=== PATIENT | female | born 1970 | race Caucasian/White ===

== ENCOUNTER → 2020-09-21 10:40 | Outpatient (BNVA) | payer OTHER, SELFPAY | PROVIDERS: PCP Internal Medicine; Referring Provider Internal Medicine; Visit Provider Internal Medicine Gastroenterology | DX: K51.30 Ulcerative (chronic) rectosigmoiditis without complications (principal); K21.9 Gastro-esophageal reflux disease without esophagitis | CPT/HCPCS: Q3014 ==

== ENCOUNTER 2020-12-22 06:33 | Day surgery (SDC) | payer OTHER, SELFPAY ==
[2020-12-16 13:25] VITALS: BMI 24.8
--- NOTE | 2020-12-21 07:47 | HO.ANESPROP2 ---
Documented by User: Bety Wiggins 12/21/20 07:47 HPI - Anesthesia Eval Consult details Narrative: 50yo F for Colonoscopy [facility] Active Problems Active Problems: All Active Problems (Updated 09/21/20 @ 10:56 by Joanie Sharma MD) Ulcerative proctosigmoiditis (Acute) GERD (gastroesophageal reflux disease) (Acute) Past Medical History Medical History GERD (gastroesophageal reflux disease) Ulcerative proctosigmoiditis Family History Family History Father Diabetes Brother Diabetes Surgical History Surgical History History of cone biopsy of cervix (04/20/20) History of esophagogastroduodenoscopy (EGD) Hx of colonoscopy Hx of inguinal hernia surgery (07/27/20) Social History Social History Alcohol intake: current Alcohol intake frequency: holidays/special occasions only Smoking Status: Never smoker Advance Directives Information Provided: No Meds Allergies Allergy/AdvReac Type Severity Reaction Status Date / Time bee pollen [Bee Stings] Allergy Severe ANAPHYLAXIS Verified 09/21/20 10:40 Penicillins [PENICILLINS] Allergy Severe ANAPHYLAXIS Verified 09/21/20 10:40 Home Medications Medication Instructions Recorded Confirmed Last Taken Type famotidine 20 mg tablet 20 mg PO BEDTIME 09/21/20 12/16/20 Unknown History Exam Exam Date and Time: December 21, 2020 0747 Height,Weight and Vital Signs: Height 5 ft 2 in Weight 61.689 kg Assessment and Plan Assessment Anesthesia Assessment: Chart Reviewed Documented by User: Rajesh Guardado 12/22/20 07:15 PMFSH Past Medical History Medical History GERD (gastroesophageal reflux disease) Ulcerative proctosigmoiditis Family History Family History Father Diabetes Brother Diabetes Surgical History Surgical History History of cone biopsy of cervix (04/20/20) History of esophagogastroduodenoscopy (EGD) Hx of colonoscopy Hx of inguinal hernia surgery (07/27/20) Social History Social History Alcohol intake: current Alcohol intake frequency: holidays/special occasions only Smoking Status: Never smoker Advance Directives Information Provided: No Meds Allergies Allergy/AdvReac Type Severity Reaction Status Date / Time bee pollen [Bee Stings] Allergy Severe ANAPHYLAXIS Verified 09/21/20 10:40 Penicillins [PENICILLINS] Allergy Severe ANAPHYLAXIS Verified 09/21/20 10:40 Home Medications Medication Instructions Recorded Confirmed Last Taken Type famotidine 20 mg tablet 20 mg PO BEDTIME 09/21/20 12/16/20 Unknown History Exam Airway Mallampati Class: II TM Dist: >3cm Neck ROM: Full Loose/Missing/Broken Teeth: No Heart: rrr+[id number] Lungs: cta b/l Assessment and Plan Assessment Anesthesia Assessment: Anesthesia Plan Discussed, PAT Visit and Chart Reviewed Final Anesthetic Review NPO: Yes ASA Class: II Final Preanesthetic Review: No Changes in Pt Med Stat, Meds/Allgs Chart Reviewed, Consent Obtained/Reviewed and Anes Risks/Benef Reviewed Patient Risk: Low Procedure Risk: Low Assessment/Block/Sedation in SS: Assess/Block/Sedation-SS Anesthetic Plan Anesthetic Plan: MAC: and Agree w/ Assess. and Plan Disposition: Standard PACU
[2020-12-22 06:45] VITALS: BP 128/76; PULSE 72; RESP 18; TEMP 36.3; O2SAT 100
[2020-12-22] MEDS: Lactated Ringers 1,000 ML 100 ML IVCONT (06:55)
--- NOTE | 2020-12-22 07:18 | MHC.SHP ---
Pre-Procedural Eval Section B Chief Complaint: Chronic Ulcerative Colitis/Colon cancer screening Details of Present Illness: Worsening dysphagia, Colon cancer screening, Hx IBD Relevant Family History (Specify if Yes): No Relevant Social History: None Present Medications: see Short Stay Collaborative assessment Medical History: Significant History (Proctosigmoiditis, no meds >1 yr;GERD) Allergies: Allergies Allergy/AdvReac Type Severity Reaction Status Date / Time bee pollen [Bee Stings] Allergy Severe ANAPHYLAXIS Verified 09/21/20 10:40 Penicillins [PENICILLINS] Allergy Severe ANAPHYLAXIS Verified 09/21/20 10:40 Review of Systems Sugical H&P ROS: Negative: Constitution, Cardiovascular, Respiratory, Hem-Onc and Allergic/Immunologic and Yes, Specify: Gastrointestinal (food hanging up substernal. Hx HH,Ring), Musculoskeletal, Integumentary, Endocrine and Eyes/Ears/Nose/Throat Exam Surgical H&P Exam: Normal: HEENT, Normal: Heart, Normal: Lungs, Normal: Extremities and Normal: Abdomen Plan Diagnosis/Plan: Unchanged I have reviewed the history and physical and performed a pertinent physical examination on my patient. No changes have occurred unless specified.yes
[2020-12-22 08:35] VITALS: BP 98/62; PULSE 75; RESP 16; TEMP 36.2; O2SAT 98
--- NOTE | 2020-12-22 08:35 | PM.OP ---
Brief Operative Note Date of Service: 12/22/20 Pre-op diagnosis: DYSPHAGIA, HX OF SCHATZKI RING(2015-DILATION); COLON CANCER SCREENING, HX ULCERATIVE PROCTOSIGMOIDITIS Post-op diagnosis: other (RECURRENT SCHATZKI'S RING,HIATAL HERNIA, S. GASTRITIS; NORMAL COLON, 2+ INTERNAL HEMORRHOIDS.) Procedure: EGD W/ BX; COLONOSCOPY WITH MULTIPLE BX Implants: NONE Surgeon: Joanie Sharma MD Anesthesia: MAC (CUFF,MOTOR ANALYST; MD ANNA) Estimated blood loss (mL): 15 Condition: stable Disposition: PACU
[2020-12-22 08:52] VITALS: BP 114/76; PULSE 74; RESP 16; TEMP 36.2; O2SAT 99
--- NOTE | 2020-12-22 09:58 | W.PM.OPN ---
Operative Note Operative Note Date of Service: 12/22/20 Narrative: Pre-op diagnosis: DYSPHAGIA, HX OF SCHATZKI RING(2015-DILATION); COLON CANCER SCREENING, HX ULCERATIVE PROCTOSIGMOIDITIS PREVIOUS PROCEDURES: [id number] Distal ileum: No inflam TI, bx + rectum to sigmoid: Mod to marked Chronic active colitis. 2013: Cornucopia-mild inflamation-descending and sigmoid-mild chronic active colitis 2015: EGD: Schatzki ring dilated 18/19mm CRE Balloon. Post-op diagnosis: EGD: RECURRENT SCHATZKI'S RING,HIATAL HERNIA, S. GASTRITIS; COLONOSCOPY: NORMAL COLON, 2+ INTERNAL HEMORRHOIDS. Procedure: EGD W/ BX; COLONOSCOPY WITH MULTIPLE BX Implants: NONE Surgeon: Joanie Sharma MD Anesthesia: MAC (CUFF,DIRECT RESPONSE CONSULTANT; MD ANNA) FINDINGS: EGD: Video endoscope was introduced without difficulty. Once in the upper esophageal area-there was a suggestion of WENDY. As GE junction was approached a ring was noted with some mild inflamatory changes involving the ring itself. (BX done 3 spec areas). Distal this was a small Hiatal hernia. GASTRIC--Bile was present in the fundic pool, erythema distal body and antrum (BX done) Duodenal bulb and Duodenum were normal, with normal appearing villi. COLONOSCOPY: ZAHRA: NO Sphincter tone, Prostate was normal Adult slim colonoscope was introduced without difficulty. There was some slight blurring of submucosal vessels in rectosigmoid. Scope easily advanced to the cecum. Appendiceal orifice was seen, as was the ileocecal valve. Prep Good to excellent. I did not intubate the terminal ileum. Slow withdrawal of scope, good rotational views-no additional mucosal lesions seen. ARV-clear 2+ Internal hemorrhoids were noted. Estimated blood loss (mL): 15 Condition: stable Disposition: PACU PLAN: COLON REPEAT --5 YEARS. OFFICE OR [id number] WEEKS FOR GERD management and review of dysphagia complaints.
== END 2020-12-22 09:35 | disposition home or self-care (01) ==
PROVIDERS: PCP Internal Medicine; Visit Provider Internal Medicine Gastroenterology
PROC: 0DJD8ZZ Inspection of Lower Intestinal Tract, Via Natural or Artificial Opening Endoscopic (ICD-10-PCS; CPT 45378; principal; 2020-12-22 07:30)
DX: Z12.11 Encounter for screening for malignant neoplasm of colon (principal); K51.90 Ulcerative colitis, unspecified, without complications; K64.8 Other hemorrhoids; K29.30 Chronic superficial gastritis without bleeding; K22.2 Esophageal obstruction; K44.9 Diaphragmatic hernia without obstruction or gangrene; K21.9 Gastro-esophageal reflux disease without esophagitis; Z79.899 Other long term (current) drug therapy; Z88.0 Allergy status to penicillin
CPT/HCPCS: 43239; G0105; 88305; 88342